=== PATIENT | female | born 1970 | race Caucasian/White ===

== ENCOUNTER 2017-02-04 15:50 | Emergency (ER) | payer MEDICAID, OTHER ==
[~2017-02-04] VITALS: Ht 157.5 cm; Wt 78.7 kg
[2017-02-04 15:56] VITALS: Ht 157.5 cm; Wt 78.7 kg
[2017-02-04] MEDS ORDERED: IBUP-1542 PO (16:23)
--- NOTE | 2017-02-04 16:33 | ERD ---
ER Documentation Chief Complaint Chief Complaint Complains of knee pain x 3 days HPI 38-year-old female is complaining of left knee pain 1 year. Patient stated that she went to [place] ER 1 year ago, and received x-ray of her left knee. The pain had resolved for short period, and returned 6 months ago. For the last 1 month, the pain has been much worse. She does not have any pain at rest , but does have pain when she was walking. Patient stated that she feels "clicks" when she is moving her knee. Sometimes she feels her knee "catching". She recently saw her PCP for the knee pain, and had another x-ray done. Patient stated that her PCP will order MRI for her, but did not give her any medication for pain. Denies injury. Denies fever or chills. Denies denies erythema or swelling. ROS All systems reviewed and are negative except as per history of present illness. Medications Home Meds Active Scripts Ibuprofen* (Motrin*) 600 Mg Tab, 600 MG PO Q6H Y for PAIN AND OR ELEVATED TEMP, #30 TAB Prov:CALOSZUHAIR Wood [employer]TE[employer]ER 02/04/17 Allergies Allergies: Coded Allergies: No Known Drug Allergy (Verified Allergy, Unknown, 10/24/07) PMhx/Soc History of Surgery: No Anesthesia Reaction: No Hx Neurological Disorder: No Hx Respiratory Disorders: No Hx Cardiac Disorders: No Hx Psychiatric Problems: No Hx Miscellaneous Medical Probl: No Hx Alcohol Use: No Hx Substance Use: No Hx Tobacco Use: No Physical Exam Vitals Vital Signs Date Time Temp Pulse Resp B/P Pulse Ox O2 Delivery O2 Flow Rate FiO2 02/04/17 15:56 98.3 83 20 133/75 98 Physical Exam General: Well-developed, well-nourished, conscious and coherent, in no distress Skin: Warm and dry without rash, good texture and turgor Head: Normocephalic without evidence of trauma Eyes: Sclera and conjunctivae normal; pupils equal, round, and reactive to light; extraocular movements are intact Chest: Normal AP diameter. Good expansion without retractions. Nontender. Lungs are clear to auscultate bilaterally with good tidal volume Heart: Regular rate and rhythm. No murmur, rub, or gallops heard Extremities: Patient able to bear weight, ambulates without pain. No surface trauma, soft tissue swelling or obvious effusion. No overlying erythema or warmth. The left knee is without obvious asymmetry or deformity compared to the right. Patient able to do deep knee bend, fully extend knee, internal/external rotation. Nontender to palpation of the patella, no effusion or ballottement. Nontender over the infrapatellar tendon. No tenderness over the lateral joint line, nontender over the medial joint line. Nontender over the proximal fibular head. Nontender, fullness, or mass of the popliteal fossa. No quadriceps tenderness. No laxity of the ACL, PCL, MCL, or LCL. No collateral ligament laxity to valgus or varus stress. Negative drawer sign. Apley positive. Distal motor and neurovascular status intact. Neuro: Alert and oriented 4, GCS 15. Cranial nerves grossly intact. Motor and sensory exams nonfocal. Moves all extremities. Speech clear. Gait normal Procedures/MDM Well-appearing 38-year-old female presented ED with chronic left knee pain. Since the condition is chronic, and she had recently received the x-ray by her PCP, I do not feel repeat x-ray today is necessary. Differentials include but not limited to ligamentous injuries, patellar dislocation, total knee dislocation, patella or tibia fracture of fracture, Pulido's cyst, DVT, meniscus tear, ACL or PCL tear, patellar bursitis, septic joint, gout, or tumor. Her history and exam findings is suspicious for meniscus tear versus arthritis. Patient advised to follow-up with her PCP for MRI, Ortho referral, and physical therapy referral. Patient appears well, stable for discharge and outpatient management. Medical decision making shared with patient and family. Education provided to patient and family. Patient and family expressed understanding of the plan. Medications on discharge: Ibuprofen. Follow-up: Primary care provider in 2-3 days or return to ED if worse. Disclaimer: Inadvertent spelling and grammatical errors are likely due to EHR/ dictation software use and do not reflect on the overall quality of patient care. Also, please note that the electronic time recorded on this note does not necessarily reflect the actual time of the patient encounter. Departure Diagnosis: Primary Impression: Left knee pain Chronicity: chronic Qualified Code: M25.562 - Chronic pain of left knee Condition: Stable Patient Instructions: Knee Pain, Uncertain Cause Referrals: COMM[facility]ITY CL[facility] YOU HAVE RECEIVED A MEDICAL SCREENING EXAM AND THE RESULTS INDICATE THAT YOU DO NOT HAVE A CONDITION THAT REQUIRES URGENT TREATMENT IN THE EMERGENCY DEPARTMENT. FURTHER EVALUATION AND TREATMENT OF YOUR CONDITION CAN WAIT UNTIL YOU ARE SEEN IN YOUR DOCTORS OFFICE WITHIN THE NEXT 1-2 DAYS. IT IS YOUR RESPONSIBILITY TO MAKE AN APPOINTMENT FOR FOLOW-UP CARE. IF YOU HAVE A PRIMARY DOCTOR --you should call your primary doctor and schedule an appointment IF YOU DO NOT HAVE A PRIMARY DOCTOR YOU CAN CALL OUR PHYSICIAN REFERRAL HOTLINE AT IF YOU CAN NOT AFFORD TO SEE A PHYSICIAN YOU CAN CHOSE FROM THE FOLLOWING [facility] [address] [facility] [facility] [address] [facility] [facility] [address] [facility] [facility] [address] [facility]. [facility] [address] [facility]. [facility]. [address] Additional Instructions: Call your primary care doctor TOMORROW for an appointment during the next 1 WEEK.Tell the national secretary that you were referred from this facility.See the doctor sooner or return here if your condition worsens before your appointment time. ZUHAIR LIVE NP Feb 04, 2017 16:33
== END 2017-02-04 16:48 | disposition home or self-care (01) ==
LOC: FTE 15:50
DX: M25.562 Pain in left knee (principal)
CPT/HCPCS: 99283